=== PATIENT | female | born 1980 | race African-American/Black ===

== ENCOUNTER 2018-10-16 05:29 | Day surgery (SDC) | payer OTHER ==
[2018-10-16] MEDS: LACTATED RINGER'S 1,000 ML IV (06:31)
[2018-10-16] MEDS ORDERED: MIDAZOLAM 1 MG/ML 2 ML INJ (06:52)
[2018-10-16] MEDS ORDERED: BUPIVACAINE 0.5% (SDV) 30 ML INJ (06:54)
[2018-10-16] MEDS ORDERED: LIDOCAINE 2% (SDV) 5 ML INJ (07:00)
[2018-10-16] MEDS ORDERED: SEVOFLURANE 15 MIN (07:00)
[2018-10-16] MEDS ORDERED: PROPOFOL 200 MG INJ (07:00)
[2018-10-16] MEDS ORDERED: ROCURONIUM 50 MG INJ (07:00)
[2018-10-16] MEDS ORDERED: DEXAMETHASONE 4 MG/ML 5 ML INJ (07:33)
[2018-10-16] MEDS ORDERED: ONDANSETRON 4 MG INJ (07:33)
[2018-10-16] MEDS ORDERED: CEFAZOLIN 1 GM INJ (09:08)
[2018-10-16] MEDS ORDERED: SUGAMMADEX SODIUM 200 MG/2 ML VIAL IV (09:09)
[2018-10-16] MEDS: ROPIVACAINE 0.5 % 30 ML VIAL (09:25)
[2018-10-16] MEDS: POVIDONE IODINE 10% 28.4 GM OINT (09:25)
[2018-10-16] MEDS: MEPERIDINE 25 MG INJ IV (09:48)
[2018-10-16] MEDS: ONDANSETRON 4 MG INJ IV (09:48)
[2018-10-16] MEDS ORDERED: SOD CHLORIDE 0.9% 1,000 ML IV (09:58)
[2018-10-16] MEDS ORDERED: morphine 2 MG INJ IV (10:00)
[2018-10-16] MEDS ORDERED: OXYCODONE/ACETAMINOPHEN (5/325) TAB PO ×4 (10:00)
[2018-10-16] MEDS ORDERED: KETOROLAC 30 MG INJ IV (10:00)
[2018-10-16] MEDS ORDERED: MIDAZOLAM 1 MG/ML 2 ML INJ IV (10:00)
[2018-10-16] MEDS ORDERED: ONDANSETRON 4 MG INJ IV (10:00)
[2018-10-16] MEDS ORDERED: LABETALOL HCL 20MG INJ IV (10:00)
[2018-10-16] MEDS ORDERED: EPHEDrine SULFATE 50 MG/5 ML SYG IV (10:00)
[2018-10-16] MEDS ORDERED: HYDROmorphONE 1 MG/5 ML IV SYRINGE IV ×2 (10:00)
[2018-10-16] MEDS ORDERED: hydrALAzine 20 MG INJ IV (10:00)
[2018-10-16] MEDS ORDERED: DIPHENHYDRAMINE 50 MG INJ IV (10:00)
[2018-10-16] MEDS ORDERED: ALBUTEROL 0.083% (NEB) 2.5 MG/3 ML AMP HHN (10:00)
[2018-10-16] MEDS ORDERED: FENTAnyl 50 MCG/ML VIAL IV ×3 (10:00)
[2018-10-16] MEDS: HYDROmorphONE 1 MG/5 ML IV SYRINGE IV (10:40)
[2018-10-16] MEDS: METOCLOPRAMIDE 10 MG INJ IV (13:44)
== END 2018-10-16 14:40 | disposition home or self-care (01) ==
LOC: SDS 05:29
DX: M25.871 Other specified joint disorders, right ankle and foot (principal); L90.5 Scar conditions and fibrosis of skin; M65.871 Other synovitis and tenosynovitis, right ankle and foot; J45.909 Unspecified asthma, uncomplicated
CPT/HCPCS: 29898